=== PATIENT | male | born 1960 | race Two or more races ===

== ENCOUNTER 2016-11-07 11:01 | Emergency (ER) | payer SELFPAY ==
[~2016-11-07] VITALS: Ht 170.2 cm; Wt 68.0 kg
[2016-11-07 12:40] LABS: EOSINOPHILS % (AUTO) 0.5 % (0.0-3.0); LYMPHOCYTES % (AUTO) 38.1 % (20.0-45.0); MEAN CORPUSCULAR HEMOGLOBIN 31.3 PG (27.0-31.0); MEAN CORPUSCULAR HGB CONC 33.2 G/DL (32.0-36.0); MEAN CORPUSCULAR VOLUME 94 FL (80-99); MEAN PLATELET VOLUME 8.9 FL (6.5-10.1); MONOCYTES % (AUTO) 6.2 % (1.0-10.0); NEUTROPHILS % (AUTO) 54.4 % (45.0-75.0); PLATELET COUNT 220 K/UL (150-450); RED CELL DISTRIBUTION WIDTH 11.5 % (11.6-14.8); WHITE BLOOD COUNT 4.2 K/UL (4.8-10.8)
[2016-11-07 12:56] LABS: ALANINE AMINOTRANSFERASE 23 U/L (3-41); ALBUMIN/GLOBULIN RATIO 1.7 (1.0-2.7); ALCOHOL 306 mg/dL; ANION GAP 16 (5-15); ASPARTATE AMINO TRANSFERASE 29 U/L (5-40); CALCIUM 9.1 mg/dL (8.6-10.2); CARBON DIOXIDE 21 mEQ/L (20-30); CHLORIDE 103 mEQ/L (98-107); GLOMERULAR FILTRATION RATE > 60 mL/min (>60); HEMOLYSIS 7; SODIUM 140 mEQ/L (135-145); TOTAL PROTEIN 7.1 g/dL (6.6-8.7)
--- NOTE | 2016-11-07 15:33 | Emergency Room Report ---
History of Present Illness General Chief Complaint: Alcohol Intoxication Source: Patient, EMS Present Illness HPI This patient was brought in by EMS. Apparently he had an empty 12 pack of beer next him. He was being disruptive and belligerent. The patient himself is intoxicated but has no specific complaints. He is asking to leave. He states that we have better things to do. However, he also is unable to articulate whether he has any family or home where he would go from the emergency department despite desiring to leave. Allergies: Coded Allergies: No Known Allergies (Unverified , 11/07/16) Patient History Past Medical History: COPD, other - gout Social History: Reports: alcohol use, Denies: drug use, smoking Reviewed Nursing Documentation: PMH: Agreed, PSxH: Agreed Nursing Documentation-PMH Past Medical History: No History, Except For Review of Systems All Other Systems: negative except mentioned in HPI Physical Exam Vital Signs Date Time Temp Pulse Resp B/P Pulse Ox O2 Delivery O2 Flow Rate FiO2 11/07/16 10:52 98.1 80 14 96/63 98 Room Air Sp02 EP Interpretation: reviewed, normal General Appearance: no apparent distress, alert, GCS 15, non-toxic Head: normocephalic, atraumatic Eyes: bilateral eye PERRL, bilateral eye normal inspection ENT: hearing grossly normal, normal pharynx, no angioedema, normal voice Neck: full range of motion, supple/symm/no masses Respiratory: chest non-tender, lungs clear, normal breath sounds, speaking full sentences Cardiovascular #1: regular rate, rhythm, no edema Gastrointestinal: normal bowel sounds, non tender, soft, non-distended, no guarding, no rebound Rectal: deferred Musculoskeletal: back normal, gait/station normal, normal range of motion, non- tender, calf tenderness Neurologic: alert, oriented x3, responsive, motor strength/tone normal, sensory intact, speech normal Psychiatric: mood/affect normal, no suicidal/homicidal ideation, other Skin: normal color, no rash, warm/dry, well hydrated Medical Decision Making Diagnostic Impression: Primary Impression: Acute alcoholic intoxication ER Course This patient presents with acute alcoholic intoxication. He did keep trying to leave but I kept him on a medical hold. The patient is unable to articulate a plan and is incapable of making a rational decision at this time. He is under the influence of alcohol. He is hallucinating. He was kept here in the emergency department tell he is clinically sober. When he is able to carry out a set with the plan he'll be discharged. At this time he is sleeping and resting. Labs Test 11/07/16 11:45 11/07/16 12:29 White Blood Count 4.2 K/UL (4.8-10.8) Red Blood Count 4.50 M/UL (4.70-6.10) Hemoglobin 14.1 G/DL (14.2-18.0) Hematocrit 42.4 % (42.0-52.0) Mean Corpuscular Volume 94 FL (80-99) Mean Corpuscular Hemoglobin 31.3 PG (27.0-31.0) Mean Corpuscular Hemoglobin Concent 33.2 G/DL (32.0-36.0) Red Cell Distribution Width 11.5 % (11.6-14.8) Platelet Count 220 K/UL (150-450) Mean Platelet Volume 8.9 FL (6.5-10.1) Neutrophils (%) (Auto) 54.4 % (45.0-75.0) Lymphocytes (%) (Auto) 38.1 % (20.0-45.0) Monocytes (%) (Auto) 6.2 % (1.0-10.0) Eosinophils (%) (Auto) 0.5 % (0.0-3.0) Basophils (%) (Auto) 1.0 % (0.0-2.0) Sodium Level 140 mEQ/L (135-145) Potassium Level 4.0 mEQ/L (3.4-4.9) Chloride Level 103 mEQ/L (98-107) Carbon Dioxide Level 21 mEQ/L (20-30) Anion Gap 16 (5-15) Blood Urea Nitrogen 17 mg/dL (7-23) Creatinine 1.0 mg/dL (0.7-1.2) Estimat Glomerular Filtration Rate > 60 mL/min (>60) Glucose Level 96 mg/dL (74-106) Calcium Level 9.1 mg/dL (8.6-10.2) Total Bilirubin 0.5 mg/dL (0.0-1.2) Aspartate Amino Transf (AST/SGOT) 29 U/L (5-40) Alanine Aminotransferase (ALT/SGPT) 23 U/L (3-41) Alkaline Phosphatase 51 U/L (40-129) Total Protein 7.1 g/dL (6.6-8.7) Albumin 4.5 g/dL (3.5-5.2) Globulin 2.6 g/dL Albumin/Globulin Ratio 1.7 (1.0-2.7) Serum Alcohol 306 mg/dL Last Vital Signs Date Time Temp Pulse Resp B/P Pulse Ox O2 Delivery O2 Flow Rate FiO2 11/07/16 10:52 98.1 80 14 96/63 98 Room Air Status: improved Disposition: HOME, SELF-CARE Condition: Improved Referrals: NOT CHOSEN IPA/,REFERRING (PCP) Patient Instructions: Alcohol Use Disorder PAYTON COFFEY D.O. Nov 07, 2016 15:33
[2016-11-07 16:12] VITALS: BP 96/63
== END 2016-11-07 16:14 | disposition home or self-care (01) ==
LOC: EDBD 11:01 → EMR 12:14
DX: F10.129 Alcohol abuse with intoxication, unspecified (principal); J44.9 Chronic obstructive pulmonary disease, unspecified
CPT/HCPCS: 36415; 80053; 85025; 99284; G0480; 80329

== ENCOUNTER 2018-07-28 11:33 | Emergency (ER) | payer MEDICAID ==
[~2018-07-28] VITALS: Ht 170.2 cm; Wt 74.8 kg
[2018-07-28 11:37] VITALS: BP 120/80
--- NOTE | 2018-07-28 11:43 | NUR ---
ED Nurse Note: Patient brought in to ER by ambulance due to AMS by ETOH. per EMS, [place] pt talking to himself and disoriented, however, pt was able to answer name, date, place, and purpose. vital signs stable as documented and BS 111mg/dl. skin warm to touch but no wound or pressure ulcers noted.
--- NOTE | 2018-07-28 11:52 | NUR ---
ED Nurse Note: Patient screaming and being loud but calms down with commands and direction from nurse. drowsy but still yelling and talking to himself.
--- NOTE | 2018-07-28 11:59 | NUR ---
ED Nurse Note: FRANCESCA spoke to the patient. Vital signs stable. No order received yet.
--- NOTE | 2018-07-28 12:52 | NUR ---
ED Nurse Note: Patient has stable vital signs and sleeping in bed. 119/81 mmHg, 82, 24, 97.2F, 98% in room air.
--- NOTE | 2018-07-28 13:11 | Emergency Room Report ---
History of Present Illness General Chief Complaint: Alcohol Intoxication Source: Patient, EMS (TerranceErnie santos DO) Present Illness HPI Patient presents with complaints of alcohol intoxication by paramedics Paramedics report the patient was found with a bottle of alcohol and [place] appear to be inebriated and was brought to the emergency room Patient tearful yelling and screaming at the staff He does admit to drinking heavy amounts of alcohol Denies any chest pain denies any vomiting or diarrhea Patient clinically also appeared somewhat inebriated (Ernie Dennis DO) Allergies: Coded Allergies: No Known Allergies (Unverified , 11/07/16) Patient History Past Medical History: see triage record Pertinent Family History: none Reviewed Nursing Documentation: PMH: Agreed; PSxH: Agreed (Ernie Dennis DO) Nursing Documentation-PMH Past Medical History: No History, Except For Hx Hypertension: Yes (Ernie Dennis DO) Review of Systems All Other Systems: limited - Other than the ones mentioned in the history of present illness all others are reviewed however they do stay limited due to the patient's mental status (Ernie Dennis DO) Physical Exam Vital Signs Date Time Temp Pulse Resp B/P (MAP) Pulse Ox O2 Delivery O2 Flow Rate FiO2 07/28/18 11:30 72 16 109/74 100 Room Air 07/28/18 11:37 97.0 Sp02 EP Interpretation: reviewed, normal General Appearance: no apparent distress Head: normocephalic, atraumatic Eyes: bilateral eye PERRL, bilateral eye EOMI ENT: normal pharynx Neck: supple Respiratory: lungs clear, no respiratory distress, no retraction Cardiovascular #1: regular rate, rhythm Gastrointestinal: non tender, soft Musculoskeletal: normal inspection Neurologic: other - Patient is able to be oriented with multiple repeat questioning moves all extremities without focal deficit Skin: normal color, no rash Lymphatic: no adenopathy (Ernie Dennis DO) Medical Decision Making Homeless Attestation I, Dr. Sherman, the Treating physician, has assessed whether the patient is alert and oriented to person, place and time and has determined that the patient is clinically stable for discharge. (Mitesh Sherman MD) Diagnostic Impression: Primary Impression: Acute alcoholic intoxication ER Course Patient presents by paramedics here also reports that he has been jerking heavily denies any abdominal pain He is not quite sure why he was brought to the emergency room Does not show any obvious focal deficit patient is not actively vomiting After further discussion patient is allowed to rest Requires further sobering and repeat evaluation attempt is being made to contact family (Ernie Dennis DO) ER Course . . Patient was noted to have gradual improvement in his mental status. At the time of discharge patient was awake alert and ambulatory without assistance. Patient appears to be stable for outpatient management does not appear to require any medications. (Mitesh Sherman MD) Last Vital Signs Date Time Temp Pulse Resp B/P (MAP) Pulse Ox O2 Delivery O2 Flow Rate FiO2 07/28/18 11:37 82 16 Room Air 07/28/18 11:37 97.0 120/80 96 (Ernie Dennis DO) Ernie Dennis DO Jul 28, 2018 13:11 Mitesh Sherman MD Jul 28, 2018 14:30
[2018-07-28 13:43] VITALS: BP 121/83
--- NOTE | 2018-07-28 14:50 | NUR ---
ED Nurse Note: steel worker speaking to patient at the bedside.
--- NOTE | 2018-07-28 14:55 | NUR ---
Social Service Note ASHWINI met with patient to assess for homelessness. Patient alert, and verbally responsive. Patient refused to answer questions regarding homelessness. Patient's appearance is well groomed, with clean new clothes and boots. Patient states he has somewhere to go and it's not SW business. ASHWINI informed patient of assigned clinic [facility] [address] [facility] [address], . ASHWINI contacted [facility] [phone] and spoke with Reilly. Patient was a resident in one of there housing programs with a permeant bed but left on 12/22/17. Per Reilly for patient to be reassessed for acceptance patient will require TB testing. At this time open correction beds are not available. Doors opened today at 1330 and beds have been assigned. ASHWINI informed patient of requirements for [facility]. Patient didn't want to address ETOH intoxication and history of ETOH dependency. Homeless check list completed by nurse.
[2018-07-28 15:15] VITALS: BP 121/83
--- NOTE | 2018-07-28 15:15 | NUR ---
ER DISCHARGE NOTE: Patient is cleared to be discharged per ERMD, pt is aox4, sober, on room air, with stable vital signs. pt was given dc instructions and patient provided the address he stays. Pt was provided meals and pt is wearing weather appropriate clothes, and refused to wait for transportation tab. pt was able to verbalize understanding, pt id band removed. pt is able to ambulate with steady gait. pt took all belongings.
== END 2018-07-28 15:15 | disposition home or self-care (01) ==
LOC: EDBD 11:33 → EMR 13:00
DX: F10.129 Alcohol abuse with intoxication, unspecified (principal); I10 Essential (primary) hypertension
CPT/HCPCS: 99282

== ENCOUNTER 2019-02-04 23:47 | Emergency (ER) | payer MEDICAID ==
[~2019-02-04] VITALS: Ht 167.6 cm; Wt 81.6 kg
[2019-02-04 23:47] VITALS: BP 116/68
[~2019-02-04 23:47] MED LIST: UNOBMED
--- NOTE | 2019-02-04 23:47 | NUR ---
ED Nurse Note: Recieved pt BIBA with c/o etoh intoxication, pt is awake, alert and oriented x 3, pt is singing and laughing to staff, pt is ambulatory, does have strong etoh odor noted and yelling he drank too much tonight, pt does follow commands and requires frequent commands to stay in bed, no sob or labored breathing noted, pt denies pain, will continue to closely monitor.
[2019-02-05 02:42] VITALS: BP 116/68
--- NOTE | 2019-02-05 03:57 | Emergency Room Report ---
History of Present Illness General Chief Complaint: Alcohol Intoxication Source: Patient, EMS Present Illness HPI Patient presents by paramedics for reports of alcohol intoxication and abuse upon arrival the patient was singing and Cursing at the staff denies any headache denies any chest pain he reports drinking too much last night Denies any vomiting or diarrhea denies any abdominal pain Patient at times was also becoming tearful However denies any trauma Allergies: Coded Allergies: No Known Allergies (Unverified , 11/07/16) Patient History Past Medical History: see triage record Reviewed Nursing Documentation: PMH: Agreed; PSxH: Agreed Nursing Documentation-PMH Past Medical History: Deferred Hx Hypertension: Yes Review of Systems All Other Systems: negative except mentioned in HPI Physical Exam Vital Signs Date Time Temp Pulse Resp B/P (MAP) Pulse Ox O2 Delivery O2 Flow Rate FiO2 02/04/19 23:26 98.2 73 16 116/68 (84) 98 Room Air Sp02 EP Interpretation: reviewed, normal General Appearance: well appearing, no apparent distress Head: normocephalic, atraumatic - Patient does have obvious previous nasal fractures however Eyes: bilateral eye PERRL, bilateral eye EOMI ENT: normal pharynx, no angioedema Neck: supple Respiratory: lungs clear, no respiratory distress, no retraction Cardiovascular #1: regular rate, rhythm Gastrointestinal: non tender, soft Musculoskeletal: normal inspection Neurologic: alert, oriented x3, responsive Psychiatric: normal inspection Skin: no rash Lymphatic: no adenopathy Medical Decision Making Diagnostic Impression: Primary Impression: Alcohol abuse ER Course Upon arrival patient is awake and alert is able to provide history that he had been drinking last night patient was allowed to rest Also ate in the emergency room Patient had several re-evaluations by myself and patient remained appropriate and appropriately sobering On a another visit for evaluation patient was reported to have eloped from the emergency room at the time patient had been reported to be ambulatory With appropriate gait However did not have a final reevaluation medically Last Vital Signs Date Time Temp Pulse Resp B/P (MAP) Pulse Ox O2 Delivery O2 Flow Rate FiO2 02/04/19 23:26 98.2 73 16 116/68 (84) 98 Room Air Status: improved Disposition: ELOPED Condition: Improved Additional Instructions: Patient will return to the emergency room with any other concerns Ernie Dennis DO Feb 05, 2019 03:57
== END 2019-02-05 | disposition left against medical advice (07) ==
LOC: EDBD 23:47 → EMR 02-05 00:39
DX: F10.10 Alcohol abuse, uncomplicated (principal); I10 Essential (primary) hypertension
CPT/HCPCS: 99283